=== PATIENT | male | born 1970 | race Two or more races ===

== ENCOUNTER 2016-11-24 14:25 | Emergency (ER) | payer OTHER ==
[~2016-11-24] VITALS: Ht 167.6 cm; Wt 88.5 kg
--- NOTE | 2016-11-24 14:47 | Emergency Room Report ---
History of Present Illness General Chief Complaint: Upper Respiratory Illness Source: Patient Present Illness HPI 46-year-old male presents the emergency department complaining of left ear pain in addition to nasal congestion x2 days. Patient reports intermittent fevers and has been taking Excedrin Migraine. Patient also reports migraine 5/10 in severity throbbing in nature with progressive onset. Patient reports history of migraines. Patient states he just recovered from upper respiratory illness approximately 2 weeks ago. Patient denies abdominal pain, rashes, immunocompromise. Patient states that intermittently he is able to blow his nose and had some relief for several minutes before nasal congestion returns. Patient states he has tried Mucinex with no relief. Patient denies tinnitus, dizziness, changes in vision or inability to hear. Patient denies discharge or blood from the ear. Denies CP, Palpitations, LOC, AMS, dizziness, Changes in Vision, Sensation, paresthesias, or a sudden severe headache. Allergies: Coded Allergies: No Known Allergies (Unverified , 11/24/16) Patient History Past Medical History: see triage record Past Surgical History: none Pertinent Family History: none Immunizations: UTD Reviewed Nursing Documentation: PMH: Agreed, PSxH: Agreed Nursing Documentation-PMH Past Medical History: No Stated History Review of Systems All Other Systems: negative except mentioned in HPI Physical Exam Vital Signs Date Time Temp Pulse Resp B/P Pulse Ox O2 Delivery O2 Flow Rate FiO2 11/24/16 14:39 97.3 73 18 124/77 97 Room Air Sp02 EP Interpretation: reviewed, normal General Appearance: no apparent distress, alert, GCS 15, non-toxic Head: normocephalic, atraumatic Eyes: bilateral eye PERRL, bilateral eye normal inspection ENT: hearing grossly normal, normal pharynx, no angioedema, normal voice, nasal congestion - clear rhinorrhea noted., other - Left TM is erythematous and bulging. Neck: full range of motion, supple/symm/no masses Respiratory: chest non-tender, lungs clear, normal breath sounds, speaking full sentences Cardiovascular #1: regular rate, rhythm, no edema Gastrointestinal: normal bowel sounds, non tender, soft, no guarding, no rebound Rectal: deferred Genitourinary: normal inspection, no CVA tenderness Musculoskeletal: back normal, gait/station normal, normal range of motion, non- tender, no calf tenderness Neurologic: alert, oriented x3, responsive, motor strength/tone normal, sensory intact, speech normal Psychiatric: judgement/insight normal, memory normal, mood/affect normal, no suicidal/homicidal ideation Skin: normal color, no rash, warm/dry, well hydrated Lymphatic: no adenopathy Medical Decision Making PA Attestation Dr. navarro is my supervising Physician whom patient management has been discussed with. Diagnostic Impression: Primary Impression: Otitis media Qualified Codes: H66.002 - Acute suppurative otitis media without spontaneous rupture of ear drum, left ear Additional Impression: Nasal congestion with rhinorrhea ER Course Pt. presents to the ED c/o left ear pain, nasal congestion x2 days with intermittent fevers and intermittent migraine. 5/10 in severity. Ddx considered but are not limited to OM, OE, mastoiditis, TM perforation, FB Vital signs: are WNL, pt. is afebrile H&PE are most consistent with otitis media, and nasal congestion. ORDERS: none required at this time, the diagnosis is clinical -OTOSCOPY: Left tympanic membrane is erythematous and bulging there is no evidence of discharge, or tympanic rupture. ED INTERVENTIONS: None required at this time. DISCHARGE: At this time pt. is stable for d/c to home. With PO ABX. Will provide printed patient care instructions, and any necessary prescriptions. Care plan and follow up instructions have been discussed with the patient prior to discharge. RX: Augmentin Suspension 600mg/5ml - take 2.5ml BID x 10 days Last Vital Signs Date Time Temp Pulse Resp B/P Pulse Ox O2 Delivery O2 Flow Rate FiO2 11/24/16 14:39 97.3 73 18 124/77 97 Room Air Disposition: HOME, SELF-CARE Condition: Stable Scripts Pseudoephedrine Hcl* (NEXAFED*) 30 Mg Tablet 30 MG ORAL Q6H Y for congestion for 3 Days, #20 TAB Prov: Ceci Miranda P.A. 11/24/16 Acetaminophen* (TYLENOL EXTRA STRENGTH*) 500 Mg Tablet 500 MG ORAL Q6H Y for Mild Pain/Temp > 100.5, #30 TAB 0 Refills Prov: Ceci Miranda P.A. 11/24/16 Amoxicillin* (AMOXIL*) 500 Mg Capsule 500 MG ORAL BID for 10 Days, #20 CAP Prov: Ceci Miranda P.A. 11/24/16 Patient Instructions: Otitis Media, Adult Additional Instructions: Take medications as directed. Follow up with PCP in 3-5 days Return sooner to ED if new symptoms occur, or current symptoms become worse. Ceci Miranda Nov 24, 2016 14:47
[2016-11-24 14:49] VITALS: BP 124/77
[2016-11-24] MEDS ORDERED: AMOXICILLIN500 MG ORAL (15:09)
[2016-11-24] MEDS ORDERED: NEXAFED30 MG ORAL (15:09)
[2016-11-24] MEDS ORDERED: TYLENOL EXTRA500 MG ORAL (15:09)
[2016-11-24] MEDS ORDERED: Acetaminophen 500mg (ES) tab ORAL ONE (15:15)
[2016-11-24 15:19] VITALS: BP 131/81
== END 2016-11-24 15:41 | disposition home or self-care (01) ==
LOC: EMR 14:49
DX: H66.002 Acute suppurative otitis media without spontaneous rupture of ear drum, left ear (principal); R09.81 Nasal congestion
CPT/HCPCS: 99284